=== PATIENT | female | born 1965 | race Caucasian/White ===

== ENCOUNTER 2022-07-07 13:22 | Outpatient (CLI) | payer OTHER, SELFPAY ==
[2022-07-07 22:01] LABS: Albumin* 4.4 g/dL (3.3-5.0); Chloride* 103 mmol/L (96-114)
[2022-07-07 22:02] LABS: Potassium* 4.2 mmol/L (3.6-5.1); Sodium* 138 mmol/L (135-149)
[2022-07-07 22:04] LABS: Cholesterol* 266 mg/dL (90-199); Creatinine* 0.6 mg/dL (0.5-1.5); Estimated Glomerular Filt Rate 106 ml/min
[2022-07-07 22:05] LABS: Alanine Aminotransferase* 112 U/L (4-35); Alkaline Phosphatase* 86 U/L (40-150); Aspartate Amino Transferase* 119 U/L (12-35); Bilirubin Total* 1.3 mg/dL (0.1-1.5); Blood Urea Nitrogen* 15 mg/dL (7-30); Calcium* 9.5 mg/dL (8.4-10.6); Carbon Dioxide* 27 mmol/L (20-32); Glucose* 66 mg/dL (60-115); Triglycerides* 274 mg/dL (40-149)
[2022-07-07 22:06] LABS: HDL Cholesterol* 42 mg/dL (>=50); LDL Cholesterol Calculated 169 mg/dL (<100)
[2022-07-07 22:08] LABS: C Reactive Protein* 1.9 mg/dL (0.5-1.0)
== END 2022-07-07 13:23 | disposition home or self-care (01) ==
PROVIDERS: PCP Family Medicine; Visit Provider Family Medicine
DX: Z00.00 Encounter for general adult medical examination without abnormal findings (principal); M54.9 Dorsalgia, unspecified; I10 Essential (primary) hypertension; F41.9 Anxiety disorder, unspecified; Z13.6 Encounter for screening for cardiovascular disorders
CPT/HCPCS: 80053; 80061; 86140

== ENCOUNTER 2022-07-29 14:20 | Outpatient (CLI) | payer OTHER, SELFPAY ==
--- NOTE | 2022-07-29 14:30 | CRLHL7_ITS ---
For Patients: As a result of the Century Cures Act, medical imaging exams and procedure reports are released immediately into your electronic medical record. You may view this report before your referring provider. If you have questions, please contact your health care provider. INDICATION: Back pain. TECHNIQUE: Lumbar spine MRI with contrast. The following sequences were obtained: Sagittal T1, T2 weighted and T2 weighted STIR sequences. Axial T1 and T2 weighted sequences. Axial and Sagittal T1 weighted post-contrast sequences. 15 cc of Dotarem gadolinium based contrast agent was administered. COMPARISON: None available. FINDINGS: Five lumbar type vertebral bodies, with the last fully formed disc space designated as L5-S1. Normal lumbar alignment. No recent compression fracture or aggressive marrow replacing process. L4 vertebral body hemangioma. Lower cord/conus signal is normal. The conus terminates at a normal location. No intraspinal mass or pathologic intradural enhancement. A small left renal cyst. No retroperitoneal or paraspinous mass. Discs/Endplates: At L4-5 and L5-S1, disc dehydration. Remaining discs are within normal limits. Findings at individual levels as follows: T12-L1: No spinal canal or neural foraminal stenosis. L1-2: No spinal canal or neural foraminal stenosis. L2-3: No spinal canal or neural foraminal stenosis. L3-4: No spinal canal or neural foraminal stenosis. L4-5: Mild disc bulge or shallow left central protrusion component containing an annular fissure flattens the thecal sac. Bilateral facet arthrosis. Mild left neural foraminal stenosis. No spinal canal or right neural foraminal stenosis. L5-S1: No spinal canal or neural foraminal stenosis. Imaged SI joints: Within normal limits. Imaged sacrum: Within normal limits. IMPRESSION: 1. At L4-5, a shallow left central protrusion with annular fissuring flattens the thecal sac. Mild left neural foraminal stenosis. No significant spinal canal/neural foraminal stenosis or impingement of neural structures at this level or elsewhere. 2. No intradural pathology. Dictated by Yaya Adamson MD @ 07/31/2022 5:22:08 PM (Electronically Signed)
== END 2022-07-29 14:21 | disposition home or self-care (01) ==
PROVIDERS: PCP Family Medicine; Visit Provider Family Medicine
DX: M54.9 Dorsalgia, unspecified (principal); M51.26 Other intervertebral disc displacement, lumbar region
CPT/HCPCS: 72158; A9575

== ENCOUNTER 2023-07-10 10:50 | Outpatient (CLI) | payer OTHER, SELFPAY | END 2023-07-10 10:51 | disposition home or self-care (01) | PROVIDERS: PCP Family Medicine; Visit Provider Family Medicine | DX: Z13.220 Encounter for screening for lipoid disorders (principal); I10 Essential (primary) hypertension; E55.9 Vitamin D deficiency, unspecified; E11.9 Type 2 diabetes mellitus without complications | CPT/HCPCS: 80053; 80061; 82043; 82306; 82570; 84156; 84443 ==

== ENCOUNTER 2024-07-08 10:19 | Outpatient (CLI) | payer OTHER, SELFPAY | END 2024-07-08 10:20 | disposition home or self-care (01) | PROVIDERS: PCP Family Medicine; Visit Provider Family Medicine | DX: Z00.00 Encounter for general adult medical examination without abnormal findings (principal); E79.82 Hereditary xanthinuria; E55.9 Vitamin D deficiency, unspecified; E78.5 Hyperlipidemia, unspecified; I10 Essential (primary) hypertension; F41.9 Anxiety disorder, unspecified | CPT/HCPCS: 80053; 80061; 82043; 82306; 82570; 86140 ==

== ENCOUNTER 2025-07-08 11:01 | Outpatient (CLI) | payer OTHER, SELFPAY | END 2025-07-08 11:02 | disposition home or self-care (01) | PROVIDERS: PCP Family Medicine; Visit Provider Family Medicine | DX: E55.9 Vitamin D deficiency, unspecified (principal); E78.5 Hyperlipidemia, unspecified; I10 Essential (primary) hypertension; K76.0 Fatty (change of) liver, not elsewhere classified | CPT/HCPCS: 80053; 80061; 82043; 82306; 82570 ==